=== PATIENT | female | born 1960 | race Caucasian/White ===

== ENCOUNTER 2017-05-15 16:44 | Emergency (ER) | payer OTHER ==
[2017-05-15 19:57] VITALS: BP 127/76
== END 2017-05-15 19:57 | disposition home or self-care (01) ==
LOC: ED 16:44
DX: S83.91XA Sprain of unspecified site of right knee, initial encounter (principal); S70.01XA Contusion of right hip, initial encounter; M06.9 Rheumatoid arthritis, unspecified; Z88.0 Allergy status to penicillin; W18.30XA Fall on same level, unspecified, initial encounter; Y93.89 Activity, other specified; Y99.8 Other external cause status; Y92.009 Unspecified place in unspecified non-institutional (private) residence as the place of occurrence of the external cause
CPT/HCPCS: J2270; Q0162